=== PATIENT | male | born 2000 | race Caucasian/White ===

== ENCOUNTER 2023-07-11 20:17 | Emergency (ER) | payer OTHER ==
[~2023-07-11] VITALS: Ht 175.3 cm; Wt 65.8 kg
[2023-07-11] MEDS ORDERED: ONDANSETRON ODT 4 MG TAB.RAPDIS SL ONE (22:45)
[2023-07-11] MEDS ORDERED: ONDANSETRON ODT 4 MG TAB.RAPDIS ONE (22:52)
[2023-07-11] MEDS ORDERED: NAPR500T6 PO (23:53)
[2023-07-11] MEDS ORDERED: ACETAMINOPHEN ES 500 MG TABLET ONE (23:57)
[2023-07-12] MEDS ORDERED: ACETAMINOPHEN ES 500 MG TABLET PO ONE
[2023-07-12 00:10] VITALS: BP 123/70; TEMP 98; O2SAT 99
== END 2023-07-12 00:10 | disposition home or self-care (01) ==
LOC: ER 20:19
DX: S01.311A Laceration without foreign body of right ear, initial encounter (principal); S06.0X0A Concussion without loss of consciousness, initial encounter; R11.2 Nausea with vomiting, unspecified; F10.129 Alcohol abuse with intoxication, unspecified; Z79.899 Other long term (current) drug therapy; Y04.2XXA Assault by strike against or bumped into by another person, initial encounter; Y93.89 Activity, other specified; Y92.89 Other specified places as the place of occurrence of the external cause; Y99.8 Other external cause status; Y90.6 Blood alcohol level of 120-199 mg/100 ml
CPT/HCPCS: 36415; 70450; 70486; 72125; A4663; A9150; G0480; Q0162